=== PATIENT | female | born 1950 | race African-American/Black ===

== ENCOUNTER → 2018-08-13 | Outpatient (CLI) | payer MEDICARE, MEDICAID ==
[~2018-08-13] MED LIST: multivitamin; vitamin e
== END | disposition home or self-care (01) ==
LOC: MRI 09:53
PROVIDERS: ATTEND Neurological Surgery
DX: M51.24 Other intervertebral disc displacement, thoracic region (principal); M48.04 Spinal stenosis, thoracic region
CPT/HCPCS: 72146